=== PATIENT | male | born 2000 | race Two or more races ===

== ENCOUNTER 2024-09-11 08:26 | Emergency (ER) | payer MEDICAID, SELFPAY ==
[2024-09-11 08:45] VITALS: BP 138/83; PULSE 72; RESP 16; TEMP 36.9; O2SAT 98; BMI 34.0
--- NOTE | 2024-09-11 08:58 | XR_ITS ---
EXAMINATION: Ankle, left 3 views . Technique: Ankle AP, oblique, lateral 3 views Date and time of exam: September 11, 2024 at 0911 hrs. Indications: Injury to the ankle today, ankle pain. Findings: No ankle fracture or dislocation Please see the foot report Impression: No ankle fracture or dislocation Please see the foot report
--- NOTE | 2024-09-11 08:58 | XR_ITS ---
Examination: Foot, left, 3 views Technique: AP, oblique, lateral views foot, 3 views Date and time of exam: September 21, 2024 0911 hrs. Indications: Injury to the foot 2 days ago, foot pain Findings: Acute fracture proximal fifth metatarsal with no significant displacement No foreign body No dislocation Impression: Acute fractures bases proximal fifth metatarsal
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
[2024-09-11 12:21] VITALS: BP 135/84; PULSE 81; RESP 17; TEMP 36.8; O2SAT 98
== END 2024-09-11 12:21 | disposition home or self-care (01) ==
PROVIDERS: Emergency Provider Emergency Medicine
DX: S92.352A Displaced fracture of fifth metatarsal bone, left foot, initial encounter for closed fracture (principal); V86.56XA Driver of dirt bike or motor/cross bike injured in nontraffic accident, initial encounter; Y93.55 Activity, bike riding
CPT/HCPCS: 73610; 73630; 99283